=== PATIENT | female | born 1970 | race Caucasian/White ===

== ENCOUNTER 2021-05-31 16:05 | Emergency (ER) | payer BC ==
--- OUTSIDE RECORDS SUMMARY | 2021-05-31 16:33 | XMS REPORT | Continuity of Care Document ---
:1970 Author Organization [facility] t Address [address] [place] [address] Care Team Providers Name Role Phone Unavailable Unavailable Unavailable Payers Payer Name Policy Type Policy Number Effective Date Expiration Date S ource Problems This patient has no known problems. Allergies, Adverse Reactions, Alerts Allergy Allergy Status Severity Reaction(s) Onset Inactive Treating Comm ents Source Name Type Date Date Clinician morphine DA Active MO VOMITING AND 2020- HC A RASH 08-26 [facility] 00:00: d 00 [facility] hydrocod DA Active MO VOMITING, [facility] one RASH 08-26 [facility] 00:00: d [facility] acetamin DA Active MO VOMITING, [facility] ophen RASH 08-26 [facility] 00:00: d 00 [facility] Center morphine DA Active MO 2020-0 [facility] d [address] [facility] hydrocod DA Active MO 2020-0 [facility] one - [facility] 00:00: d [facility] acetamin DA Active MO 2020- [facility] ophen - [facility] 00:00: d 00 [facility] Medications This patient has no known medications. Procedures This patient has no known procedures. Encounters Start End Encounter Admission Attending Care Care Encounter Source Date/Time Date/Time Type Type Clinicians Facility Department ID 2020-08-26 Inpatient [facility]CAK[facility] TIMBO [id number] [facility] 14:30:00 [id number] 2020-01-21 2020-01-21 Inpatient E [facility] [place] 7503 [place] 18:39:00 12:44:00 Results Test Description Test Time Test Comments Results Result Sour e Comments - CT L-SPINE W/O 2020-08-26 [facility]:54:00 [facility] : 1970 Sex: F FAX: Elizabeth Dsouza [phone] [place]: St: PRE Name: EMILOW Stephens [facility] : 1970 Age/S: 50/F [address] Unit: [id number] Loc: [place] [address] Phys: Elizabeth Dsouza LEAD BUSINESS SYSTEMS ANALYST Acct: [id number] Dis Date: Status: PRE ER PHONE #: [phone] Exam Date: 08/26/2020 1536 FAX #: [phone] Reason: R LUMBAR PAIN AFTER SLIPPING ON ICE EXAMS: CPT CODE: [id number] CT L-SPINE W/O CONTRAST [id number] Dictation location: [facility]. CT LUMBAR SPINE WITHOUT CONTRAST; SAGITTAL AND CORONAL REFORMATTED VIEWS. HISTORY: R LUMBAR PAIN AFTER SLIPPING ON ICE COMPARISON :None. TECHNIQUE: Axial CT images of the lumbar spine were obtained with coronal and sagittal reformatted views. Automated exposure control, iterative reconstruction technique, and/or adjustment of mA and/or kV according to patient's size was utilized for radiation dose reduction. IV CONTRAST: None. FINDINGS: The lumbar vertebral alignment is satisfactory without evidence of a fracture or subluxation. No prevertebral soft tissue swelling. Degenerative changes are noted with disc space narrowing, anterior osteophytes and facet arthrosis. Partial lumbarization of S1. At L2-L3, posterior bulging annulus and osteophyte formation with facet arthrosis causes mild spinal canal stenosis without neuroforaminal narrowing. At L3-L4, posterior bulging annulus and bilateral facet arthrosis causes mild spinal canal stenosis without neuroforaminal narrowing. At L4-L5, posterior bulging annulus and bilateral facet arthrosis causes moderate spinal canal stenosis and mild bilateral neuroforaminal narrowing. At L5-S1, posterior bulging annulus gallbladder facet arthrosis and ligamentum flavum thickening causes severe spinal canal stenosis and mild to moderate bilateral neuroforaminal narrowing. IMPRESSION: Lumbar spondylosis with moderate to severe spinal canal stenosis at L4-L5 and L5-S1. No lumbar spine fracture or subluxation. PAGE 1 Signed Report (CONTINUED) FAX: Elizabeth Dsouza [phone] [place]: St: PRE Name: LOW MIDDLETON [facility] : 1970 Age/S: 50/F [address] Unit: [id number] Loc: [place] [address] Phys: Elizabeth Dsouza LEAD BUSINESS SYSTEMS ANALYST Acct: [id number] Dis Date: Status: PRE ER PHONE #: [phone] Exam Date: 08/26/2020 1536 FAX #: [phone] Reason: R LUMBAR PAIN AFTER SLIPPING ON ICE EXAMS: CPT CODE: [id number] CT L-SPINE W/O CONTRAST [id number] <Continued> at 1554 Reported and signed by: Jose Caballero MD CC: Elizabeth Dsouza NP Technologist: NAHOMI ROSA Trnscrd Dt/Tm: 08/26/2020 ([id number]) [email or web address] Orig Print D/T: S: 08/26/2020 (2106 PAGE 2 Signed Report
[2021-05-31] MEDS ORDERED: IBUPROFEN 400 MG TAB ONE (16:39)
[2021-05-31 18:13] LABS: SARS-COV-2 RT PCR POSITIVE (NEGATIVE)
[2021-05-31] MEDS ORDERED: CASIRIVIMAB/IMDEVIMAB 10 ML VIAL ONE (18:26)
[2021-05-31] MEDS ORDERED: NA CHLORIDE 0.9% 250 ML ONE (18:26)
--- NOTE | 2021-05-31 22:22 | EDPHYS ---
Physician Documentation [facility] Name: Hillary Hand Age: 50 yrs Sex: Female : 1970 Arrival Date: 05/31/2021 Time: 16:10 Bed 14 Private MD: ED Physician Manny Almanza HPI: 05/31 16:21 This 50 yrs old Female presents to ER via Ambulatory with complaints of Covid+, Cough. jmm 16:21 The patient or guardian reports cough. Onset: The symptoms/episode began/occurred jmm gradually, last night. Modifying factors: The symptoms are alleviated by nothing. the symptoms are aggravated by nothing. Associated signs and symptoms: Pertinent positives: fever. It is unknown whether or not the patient has had similar symptoms in the past. Is a 50-year-old female with a history of diabetes mellitus, hyperlipidemia the presents emerged part with complaints of cough, sore throat, body aches, fever beginning last night. Patient is immunized for coronavirus.. 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 - Social history:: Smoking status: Patient denies any tobacco usage or history of. ROS: 16:21 Constitutional: Positive for body aches, chills, fatigue, fever. jmm 16:21 Cardiovascular: Positive for Negative for chest pain. 16:21 Respiratory: Positive for cough. 16:21 Respiratory: Positive for 16:21 All other systems are negative. Exam: 16:21 Constitutional: This is a well developed, well nourished patient who is awake, alert, jmm and in no acute distress. Head/Face: atraumatic. Eyes: EOMI, no conjunctival erythema appreciated ENT: Moist Mucus Membranes Neck: Trachea midline, Supple Chest/axilla: Normal chest wall appearance and motion. Cardiovascular: Regular rate and rhythm. No edema appreciated Respiratory: Normal respirations, no respiratory distress appreciated Abdomen/GI: Non distended, soft Back: Normal ROM Skin: General appearance color normal MS/ Extremity: Moves all extremities, no obvious deformities appreciated, no edema noted to the lower extremities Neuro: Awake and alert, normal gait Psych: Behavior is normal, Mood is normal, Patient is cooperative and pleasant Vital Signs: 16:15 BP 126 / 79; Pulse 113; Resp 18; Temp 101.6(O); Pulse Ox 97% ; Weight 92.99 kg; Height vg1 5 ft. 0 in. (152.40 cm); Pain 5/10; 17:20 BP 118 / 64; Pulse 77; Resp 18; Pulse Ox 100% ; jh6 18:52 BP 97 / 67; Pulse 95; Resp 18; Temp 98.8(O); Pulse Ox 97% on R/A; mh5 19:19 BP 109 / 75; Pulse 80; Resp 17; Temp 99.0(O); Pulse Ox 98% on R/A; jh6 19:30 BP 110 / 72; Pulse 86; Resp 18; Temp 98.9(O); Pulse Ox 97% on R/A; Pain 0/10; kc4 19:45 BP 114 / 76; Pulse 82; Resp 18; Temp 98.8(O); Pulse Ox 100% on R/A; Pain 0/10; kc4 20:12 BP 123 / 69; Pulse 86; Resp 18; Temp 98.9; Pulse Ox 100% on R/A; Pain 0/10; kc4 20:20 BP 108 / 70; Pulse 80; Resp 18; Temp 98.8(O); Pulse Ox 100% on R/A; Pain 0/10; kc4 21:36 BP 124 / 81; Pulse 80; Resp 18; Temp 98.7(O); Pulse Ox 98% on R/A; Pain 0/10; kc4 16:15 Body Mass Index 40.04 (92.99 kg, 152.40 cm) vg1 20:20 Infusion complete kc4 MDM: 17:46 Patient medically screened. [facility] 22:20 Data reviewed: vital signs, nurses notes. Counseling: I had a detailed discussion with hiram the patient and/or guardian regarding: the historical points, exam findings, and any diagnostic results supporting the discharge/admit diagnosis, lab results, the need for outpatient follow up, to return to the emergency department if symptoms worsen or persist or if there are any questions or concerns that arise at home. ED course: Patient is alert and nontoxic in appearance NAD. No signs of respiratory distress. Given IV infusion of monoclonal antibodies. Advised follow-up PCP and otherwise given strict return precautions. Patient understood and agrees to plan of care.. 05/31 16:20 Order name: COVID-19/FLU A+B (Document "Date of Onset" if Symptomatic); Complete Time: vg1 18:15 05/31 16:20 Order name: Strep; Complete Time: 18:15 vg1 05/31 17:37 Order name: Throat Culture EDMS Administered Medications: 16:42 Drug: Ibuprofen 400 mg Route: PO; [facility] 19:19 Follow up: Response: No adverse reaction 2 19:10 Drug: Casirivimab-Imdevimab Dose Pack 120 mg/mL-120 mg/mL (EUA) 1 application Route: 6 IV; Rate: calculated rate; Site: right forearm; 22:41 Follow up: IV Status: Completed infusion [facility] Disposition Summary: 05/31/21 22:21 Discharge Ordered Location: Home [facility] Condition: Stable [facility] Diagnosis - Coronavirus infection, unspecified [facility] Followup: jmm - With: Private Physician - When: 2 - 3 days - Reason: Recheck today's complaints, Continuance of care, Re-evaluation by your physician Discharge Instructions: - Discharge Summary Sheet [facility] - COVID-19 [facility] Forms: - Medication Reconciliation Form [facility] - Thank You Letter [facility] - Antibiotic Education [facility] - Prescription Opioid Use [facility] - Work release form mw2 Addendum: 06/03/2021 07:09 Co-signature as Attending Physician, Manny Almanza MD I agree with the assessment and r n plan of care. Attestation: The patient's history, exam findings, diagnostics, and a summary of any interventions or procedures was reviewed in detail with Elton ALLEN. Signatures: Dispatcher [employer] EDElton Romero PA PA jmm Nieto, Roman, MD MD rn Garcia, Victoria RN RN 1 Grazyna Escalante RN RN 6 America Pyle 4 Susan Gutierrez RN 2
--- NOTE | 2021-05-31 22:22 | ER ---
Nurse's Notes [facility] Name: Hillary Hand Age: 50 yrs Sex: Female : 1970 Arrival Date: 05/31/2021 Time: 16:10 Bed 14 Private MD: Diagnosis: Coronavirus infection, unspecified Presentation: 05/31 16:15 Chief complaint: Patient states: fever, cough, headache, sore throat and body aches vg1 began last night. States an employee test positive for covid. Also states RAYMUNDO ear pain. Coronavirus screen: Vaccine status: Patient reports receiving the 1st dose of the Covid vaccine. Client denies travel out of the [place] in the last 14 days. Ebola Screen: Patient negative for fever greater than or equal to 101.5 degrees Fahrenheit, and additional compatible Ebola Virus Disease symptoms. Initial Sepsis Screen: Does the patient meet any 2 criteria? Temp <36.0*C (96.8*F)) or > 38.3*C (100.9*F). Does the patient have a suspected source of infection? No. Patient's initial sepsis screen is negative. Risk Assessment: Do you want to hurt yourself or someone else? Patient reports no desire to harm self or others. Onset of symptoms was May 30, 2021. 16:15 Method Of Arrival: Ambulatory vg1 16:15 Acuity: MAGNO 3 vg1 Triage Assessment: 16:17 General: Appears in no apparent distress. uncomfortable, Behavior is calm, cooperative. vg1 Pain: Complains of pain in head Pain currently is 5 out of 10 on a pain scale. 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 - Social history:: Smoking status: Patient denies any tobacco usage or history of. Screenin:44 Abuse screen: Denies threats or abuse. Nutritional screening: No deficits noted. jh6 Tuberculosis screening: No symptoms or risk factors identified. Fall Risk None identified. Assessment: 16:43 General: Appears in no apparent distress. comfortable, Behavior is calm, cooperative. jh6 Pain: Pain currently is 3 out of 10 on a pain scale. Quality of pain is described as aching. 17:20 Reassessment: No changes from previously documented assessment. jh6 18:40 Reassessment: Patient and/or family updated on plan of care and expected duration. Pain jh6 level reassessed. Provider spoke with pt regarding +COVID results, pt agreeable to receive antibodies at this time. Pt was able to review information packet and is informed of time frame of visit and post infusion monitoring. . 19:43 Reassessment: Patient and/or family updated on plan of care and expected duration. Pain kc4 level reassessed. Patient is alert, oriented x 3, equal unlabored respirations, skin warm/dry/pink. General: Appears in no apparent distress. comfortable, Behavior is calm, cooperative, appropriate for age. Pain: Pain currently is 3 out of 10 on a pain scale. at worst was 10 out of 10 on a pain scale. Quality of pain is described as aching. Neuro: No deficits noted. Cardiovascular: No deficits noted. GI: No deficits noted. No signs and/or symptoms were reported involving the gastrointestinal system. : No deficits noted. No signs and/or symptoms were reported regarding the genitourinary system. EENT: No deficits noted. No signs and/or symptoms were reported regarding the EENT system. Derm: No deficits noted. No signs and/or symptoms reported regarding the dermatologic system. Musculoskeletal: No deficits noted. No signs and/or symptoms reported regarding the musculoskeletal system. Vital Signs: 16:15 BP 126 / 79; Pulse 113; Resp 18; Temp 101.6(O); Pulse Ox 97% ; Weight 92.99 kg; Height vg1 5 ft. 0 in. (152.40 cm); Pain 5/10; 17:20 BP 118 / 64; Pulse 77; Resp 18; Pulse Ox 100% ; jh6 18:52 BP 97 / 67; Pulse 95; Resp 18; Temp 98.8(O); Pulse Ox 97% on R/A; 5 19:19 BP 109 / 75; Pulse 80; Resp 17; Temp 99.0(O); Pulse Ox 98% on R/A; jh6 19:30 BP 110 / 72; Pulse 86; Resp 18; Temp 98.9(O); Pulse Ox 97% on R/A; Pain 0/10; kc4 19:45 BP 114 / 76; Pulse 82; Resp 18; Temp 98.8(O); Pulse Ox 100% on R/A; Pain 0/10; kc4 20:12 BP 123 / 69; Pulse 86; Resp 18; Temp 98.9; Pulse Ox 100% on R/A; Pain 0/10; kc4 20:20 BP 108 / 70; Pulse 80; Resp 18; Temp 98.8(O); Pulse Ox 100% on R/A; Pain 0/10; kc4 21:36 BP 124 / 81; Pulse 80; Resp 18; Temp 98.7(O); Pulse Ox 98% on R/A; Pain 0/10; kc4 16:15 Body Mass Index 40.04 (92.99 kg, 152.40 cm) vg1 20:20 Infusion complete kc4 ED Course: 16:10 Patient arrived in ED. mr 16:13 Elton Bonds PA is PHCP. jmm 16:13 Manny Almanza MD is Attending Physician. [facility] 16:17 Triage completed. vg1 16:17 Arm band placed on. vg1 16:21 COVID swab sent to lab. Flu and/or RSV swab sent to lab. Strep swab sent to lab. vg1 16:34 Grazyna Escalante, RN is Primary Nurse. jh6 16:34 Strep Sent. jh6 16:34 COVID-19/FLU A+B (Document "Date of Onset" if Symptomatic) Sent. jh6 16:44 Call light in reach. Side rails up X 1. Door closed. Noise minimized. Lights dimmed. jh6 16:44 No provider procedures requiring assistance completed. jh6 16:45 Awaiting lab results. jh6 18:40 Inserted saline lock: 22 gauge in right forearm, using aseptic technique. jh6 19:21 No apparent distress. Resting quietly. kc4 22:40 IV discontinued, intact, bleeding controlled, No redness/swelling at site. Pressure kc4 dressing applied. 22:41 Throat Culture Sent. kc4 Administered Medications: 16:42 Drug: Ibuprofen 400 mg Route: PO; jh6 19:19 Follow up: Response: No adverse reaction 2 19:10 Drug: Casirivimab-Imdevimab Dose Pack 120 mg/mL-120 mg/mL (EUA) 1 application Route: jh6 IV; Rate: calculated rate; Site: right forearm; 22:41 Follow up: IV Status: Completed infusion 4 Outcome: 22:21 Discharge ordered by . hiram 22:40 Discharged to home ambulatory. [facility] 22:40 Condition: improved 22:40 Discharge instructions given to patient, Instructed on discharge instructions, follow up and referral plans. medication usage, Quarentining Demonstrated understanding of instructions, follow-up care, medications. 22:41 Patient left the ED. [facility] Signatures: Elton Bonds PA PA jmm Zeynep Burt, Miguelina 5 Oneida Worrell, RN RN vg1 America Pyle kc4 Susan Gutierrez, RN RN sl2 Grazyna Escalante RN RN jh6 Corrections: (The following items were deleted from the chart) 16:21 16:15 Chief complaint: Patient states: fever, cough, headache, sore throat and body vg1 aches began last night. States an employee test positive for covid. vg1
[2021-05-31 22:57] VITALS: BP 124/81; TEMP 98.7; O2SAT 98
== END 2021-05-31 22:41 | disposition home or self-care (01) ==
LOC: ER 16:05
DX: U07.1 COVID-19 (principal); E11.9 Type 2 diabetes mellitus without complications; Z79.4 Long term (current) use of insulin; Z88.5 Allergy status to narcotic agent
CPT/HCPCS: 96365; 87070; 87081; 0240U; 99284; 96366; J7050; M0243

== ENCOUNTER 2022-04-30 22:55 | Emergency (ER) | payer BC, SELFPAY ==
--- OUTSIDE RECORDS SUMMARY | 2022-04-30 23:00 | XMS REPORT | Continuity of Care Document ---
:1970 Author Organization [facility] t Address [address] [place] [address] Care Team Providers Name Role Phone CHARO TEIXEIRA Attending Clinician Unavailable CHARO TEIXEIRA Admitting Clinician Unavailable Payers Payer Name Policy Type Policy Number Effective Date Expiration Date S ource Problems Condition Condition Condition Status Onset Resolution Last Treating Co mments Source Name Details Category Date Date Treatment Clinician Date DIABETIC DIABETIC Problem Active 2013-12-22 Memoria Active 04:00:32 l Problem [place] 12/22/2013 [facility] FATTY FATTY Problem Active 2013-12-22 Joshua krupa LIVER LIVER 04:00:32 l Active [place] Problem 12/22/2013 [facility] SKIN SKIN Problem Active 2013-12-22 Memor ia CANCER CANCER 04:00:32 l Active [place] Problem 12/22/2013 [facility] Allergies, Adverse Reactions, Alerts Allergy Allergy Status Severity Reaction(s) Onset Inactive Treating Comm ents Source Name Type Date Date Clinician morphine DA Active [facility] A RASH 2-16 [facility] 00:[facility]: d 00 [facility] hydrocod DA Active [facility], [facility] one RASH 08-26 [facility] 00:00: d 00 [facility] acetamin DA Active [facility] VOMITING, [facility] ophen RASH 08-26 [facility] 00:00: d 00 [facility] morphine DA Active MO [facility] -16 [facility] 00:00: d 00 [facility] hydrocod DA Active [facility] one 08-26 [facility] 00:00: d 00 [facility] acetamin DA Active MO [facility] ophen 08-26 [facility] 00:00: d 00 [facility] Medications Ordered Filled Start Stop Current Ordering Indication Dosage Frequency Signature Comments Components Source Medication Medication Date Date Medication? Clinician (SIG) Name Name Estivenselinajohn No Jesus P 1 gm, IV M emoria 12-20 Lonnie Piggyback, l 14:00: Daily, [place] 00 infuse over 30 minutes, first dose 12/20/13 9:00:00 CDT [place] 10 Yes Jesus P 1 tabs, Me moria mg-325 mg 12-20 Lonnie Oral, l oral tablet 13:20: q4hr, PRN H ermann 00 for pain, # 30 tabs, 2 Refill(s) Kombiglyze No Jesus P 1 tabs, Memoria XR 5 mg-500 12-19 Lonnie Tab-ER, l mg oral 23:00: Oral, qPM, Herm clari tablet, 00 first dose extended 12/19/13 release 18:00:00 CDT, Patient's Own Meds Patient's No Jesus P 1 EA, N/A, Memoria Own Home 12-19 Lonnie As l Med BIN 22:02: Indicated Lorin nn 00 PRN for other (see comment), first dose 12/19/13 17:02:00 CDT, Patient's Own Meds ceFAZolin No Jesus P 1 gm, Mem oria 12-19 Lonnie Soln-IV, l 22:00: IV [place] 00 Piggyback, Once, infuse over 30 minutes, first dose 12/19/13 17:00:00 CDT, stop date 12/19/13 17:00:00 CDT Benadryl No Jesus P 25 mg = 1 Memoria 12-19 [place] caps, Cap, l 20:39: Oral, q6hr [place] 00 PRN for itching, first dose 12/19/13 15:39:00 CDT morphine No Jesus P 50 mL, MANAGER SIX SIGMA Memoria MANAGER SIX SIGMA 1 mg/mL 12-19 [place] Dose (mg): l 50 mg 19:12: 2, Lockout Yannick n 00 Interval (min): 15, Limit Amount (mg): 8, Limit Period (hr): 1, IV, MANAGER SIX SIGMA, start date 12/19/13 14:12:00 CDT ondansetron No Jesus P 8 mg = 4 Memoria - [place] mL, l 19:12: Injection, [place] 00 IV Push, q6hr PRN for nausea/vom iting, first dose 12/19/13 14:12:00 CDT D5W with No Jesus P 1,000 mL, Memoria 0.45%NS 12-19 [place] IV, 85 l 1,000 mL 19:12: mL/hr, [place] start date 12/19/13 14:12:00 CDT promethazin No Joshua M 12.5 mg, Memoria e IVPB 12-19 Lastoczy IV l 17:45: Piggyback, [place] 00 Once PRN for nausea/vom iting, infuse over 15 minutes, first dose 12/19/13 12:45:00 CDT Demerol HCl No Joshua M 12.5 mg = Memoria 6-11 Last[place] 0.5 mL, l 17:45: Injection, [place] 00 IV Push, q5min PRN for Pain Mild (1-3), order duration: 4 doses, first dose 12/19/13 12:45:00 CDT, stop date Limited # of times morphine No Joshua M 2 mg = 0.2 Memoria 6-11 Last[place] mL, l 17:45: Injection, [place] 00 IV Push, q5min PRN for pain severe (7-10), order duration: 5 doses, first dose 12/19/13 12:45:00 CDT, stop date Limited # of times Misc No [place] 50 mL, Memor ia Medication 6-11 Soln-IV, l 17:14: IV, Once, first dose 12/19/13 12:14:00 CDT, stop date 12/19/13 12:14:00 CDT Misc No [place] 1,000 mL, Nd moria Medication 6-11 Soln-IV, l 16:55: IV, Once, first dose 12/19/13 11:55:00 CDT, stop date 12/19/13 11:55:00 CDT morphine No [place] 5 mg = 0.5 Memoria 6-11 mL, l 15:40: Injection, [place] 00 IV, Once, first dose 12/19/13 10:40:00 CDT, stop date 12/19/13 10:40:00 CDT morphine No [place] 5 mg = 0.5 Memoria 6-11 mL, l 15:29: Injection, [place] 00 IV, Once, first dose 12/19/13 10:29:00 CDT, stop date 12/19/13 10:29:00 CDT ondansetron No [place] 4 mg = 2 Memoria 6-11 mL, l 15:23: Injection, [place] 00 IV, Once, first dose 12/19/13 10:23:00 CDT, stop date 12/19/13 10:23:00 CDT dexamethaso No [place] 8 mg = 2 Memoria ne 6-11 mL, l 15:20: Injection, [place] 00 IV, Once, first dose 12/19/13 10:20:00 CDT, stop date 12/19/13 10:20:00 CDT lidocaine Yes Joshua M 5 mg = 0.5 Memoria 1% 6-11 Last[place]zy mL, l injectable 15:00: Injection, H ermann solution 00 Subcutaneo us, Once, first dose 12/19/13 10:00:00 CDT, stop date 12/19/13 10:00:00 CDT lidocaine No [place] 1 kit, Memoria topical 6-11 Kit, IV, l 14:57: Once, [place] 00 first dose 12/19/13 9:57:00 CDT, stop date 12/19/13 9:57:00 CDT rocuronium No [place] 20 mg = 2 Memoria 6-11 mL, l 14:55: Injection, IV, Once, first dose 12/19/13 9:55:00 CDT, stop date 12/19/13 9:55:00 CDT fentaNYL No [place] 100 mcg = Memoria 6-11 2 mL, l 14:55: Injection, IV, Once, first dose 12/19/13 9:55:00 CDT, stop date 12/19/13 9:55:00 CDT lidocaine Yes [place] 40 mL, Memoria 6-11 Injection, l 14:55: IV, Once, first dose 12/19/13 9:55:00 CDT, stop date 12/19/13 9:55:00 CDT propofol No [place] 180 mg = Memoria 6-11 18 mL, l 14:55: Emulsion, IV, Once, first dose 12/19/13 9:55:00 CDT, stop date 12/19/13 9:55:00 CDT cefTRIAXone No Franklin Diehl 1 gm, Memoria 6-11 Powder-Inj l 14:51: , IV, Once, first dose 12/19/13 9:51:00 CDT, stop date 12/19/13 9:51:00 CDT midazolam No [place] 2 mg = 2 Memoria 6-11 mL, l 14:51: Injection, IV, Once, first dose 12/19/13 9:51:00 CDT, stop date 12/19/13 9:51:00 CDT LR 1,000 mL No Joshua M 1,000 mL, Memoria 6-11 Lastoczy IV, 100 l 14:05: mL/hr, start date 12/19/13 9:05:00 CDT, For Adults Rocephin No Jesus P 1 gm, IV M emoria 6-11 [place] Piggyback, l 14:05: Pre Op, infuse over 30 minutes, first dose 12/19/13 9:05:00 CDT Kombiglyzkenyon Yes 1 tabs, Joshua krupa XR 5 mg-500 6-02 Oral, qPM, l mg oral 21:12: # 30 tabs, Herm clari tablet, 00 0 extended Refill(s) release Vital Signs Vital Name Observation Time Observation Value Comments Source Diastolic (mm Hg) 2013-12-20 13:00:00 Mem orial [place] Heart Rate 2013-12-20 13:00:00 [facility] [place] Systolic (mm Hg) 2013-12-20 13:00:00 Joshua rial [place] Temperature Oral (F) 2013-12-20 13:00:00 36.5 Leanna [facility] [place] Respitory Rate 2013-12-20 13:00:00 Memori al [place] Diastolic (mm Hg) 2013-12-20 09:00:00 Mem orial [place] Systolic (mm Hg) 2013-12-20 09:00:00 Joshua rial [place] Respitory Rate 2013-12-20 09:00:00 Memori al [place] Heart Rate 2013-12-20 09:00:00 [facility] [place] Temperature Oral (F) 2013-12-20 09:00:00 36.9 Leanna [facility] [place] Respitory Rate 2013-12-20 05:00:00 Memori al [place] Temperature Oral (F) 2013-12-20 05:00:00 37.2 Leanna [facility] [place] Heart Rate 2013-12-20 05:00:00 [facility] [place] Systolic (mm Hg) 2013-12-20 05:00:00 Joshua rial [place] Diastolic (mm Hg) 2013-12-20 05:00:00 Mem orial [place] Temperature Oral (F) 2013-12-19 17:07:00 36.2 Leanna [facility] [place] Temperature Oral (F) 2013-12-19 13:58:00 36.5 Leanna [facility] [place] Height 2013-12-10 21:10:00 158 cm [facility] [place] Weight 2013-12-10 21:10:00 [facility] [place] Procedures Procedure Date / Time Performed Performing Clinician Maria Alejandra prescott CERVICAL DISCECTOMY [facility] CHOLECYSTECTOMY [facility] [place] SKIN CANCER REMOVAL [facility] TONSILLECTOMY [facility] TUBAL LIGATION [facility] Encounters Start End Encounter Admission Attending Care Care Encounter Source Date/Time Date/Time Type Type Clinicians Facility Department ID 2020-08-26 Inpatient HCAKW HCAKW [id number] [facility] 14:45:52 52 [facility] 2020-01-21 2020-01-24 [place] [facility] 18:39:00 16:57:00 CHARO Bal 2013-12-19 2013-12-20 OBS nullFlavo KWSH [id number] Memoria 08:10:00 10:45:00 r isabella Langford 2013-12-19 2013-12-20 Outpatient [id number] Memoria 08:10:00 10:45:00 [id number] 80.2000 Yannick n [facility] Results Test Description Test Time Test Comments Results Result Sour e Comments - CT L-SPINE W/O 2020-08-26 CONTRAST 15:54:00 [facility] [place] [facility] 1970 Sex: F FAX: Elizabeth Dsouza [phone] [place]: St: PRE Name: LOW [place] [facility] : 1970 Age/S: 50/F [address] Unit: [id number] Loc: [place] [address] Phys: Elizabeth Dsouza SHEAR HELPER Acct: [id number] Dis Date: Status: PRE ER PHONE #: [phone] Exam Date: 08/26/2020 1536 FAX #: [phone] Reason: R LUMBAR PAIN AFTER SLIPPING ON ICE EXAMS: CPT CODE: [id number] CT L-SPINE W/O CONTRAST 32053 Dictation location: [facility]. CT LUMBAR SPINE WITHOUT CONTRAST; SAGITTAL AND [...] 1 Signed Report (CONTINUED) FAX: Elizabeth Dsouza [phone] [place]: St: PRE Name: LOW [place] [facility] : 1970 Age/S: 50/F [address] Unit: [id number] Loc: [place] [address] Phys: Elizabeth Dsouza NP Acct: [id number] Dis Date: Status: PRE ER PHONE #: [phone] Exam Date: 08/26/2020 1536 FAX #: [phone] Reason: R LUMBAR PAIN AFTER SLIPPING ON ICE EXAMS: CPT CODE: [id number] CT L-SPINE W/O CONTRAST 42623 <Continued> at 1554 Reported and signed by: Jose Caballero MD CC: Elizabeth Dsouza NP Technologist: NAHOMI ROSA Trnscrd Dt/Tm: 08/26/2020 (1558) [email or web address] Orig Print D/T: S: 08/26/2020 (1557 PAGE 2 Signed Report LABORATORY 2013-12-20 11:47:00 Test Item Value Reference Range Interpretation Comme nts Blood Glucose, Capillary (test code = Blood Glucose, Capillary) 143 74-106 H [id number] 03:00:00 Test Item Value Reference Range Interpretation Comments Blood Glucose, Capillary (test code = 103 74-106 Blood Glucose, Capillary) [id number] 22:46:00 Test Item Value Reference Range Interpretation Comments Blood Glucose, Capillary (test code = 161 74-106 H Blood Glucose, Capillary) [id number] 17:07:00 Test Item Value Reference Range Interpretation Comments FIO2 (test code = FIO2) (98) [facility]
--- NOTE | 2022-05-01 00:49 | EDPHYS ---
Physician Documentation [facility] Name: Hillary Hand Age: 51 yrs Sex: Female : 1970 Arrival Date: 04/30/2022 Time: 23:21 Bed 4 Private MD: ED Physician Chris Banuelos HPI: 05/01 00:48 This 51 yrs old Female presents to ER via Ambulatory with complaints of Flu Symptoms. ms3 00:48 51-year-old female with past medical history of diabetes, hypercholesterolemia presents ms3 for myalgias, fevers, chills that been ongoing for 1 day. Patient states her is COVID-positive. Patient states her discomfort a 5/10 described as aching. Patient denies alleviating or inciting factors. Patient states she took Aleve at 7 PM. Patient endorses headache. Patient denies abdominal pain, dysuria. HARD CANDY SPINNER: 04/30 23:31 LMP N/A - Post-menopause kb3 Historical: - Allergies: 23:31 Morphine; kb3 23:31 Vicodin; kb3 - Home Meds: 23:31 atorvastatin 10 mg oral tab 1 tab once daily [Active]; metformin 1,000 mg Oral tab 1 kb3 tab 2 times per day [Active]; - PMHx: 23:31 diabetes mellitus; Hypercholesterolemia; kb3 - PSHx: 23:31 Cholecystectomy; Partial Thyroid; tubal ligation; kb3 - Immunization history:: Adult Immunizations up to date, Client reports receiving the 2nd dose of the Covid vaccine, Last tetanus immunization: up to date. - Social history:: Smoking status: Patient denies any tobacco usage or history of. ROS: 05/01 00:48 Neck: Negative for injury, pain, and swelling, Cardiovascular: Negative for chest pain, ms3 and palpitations. MS/Extremity: Negative for injury and deformity, Skin: Negative for injury, rash, and discoloration. Constitutional: Positive for body aches, chills, fever. Respiratory: Positive for cough. All other systems are negative. Exam: 00:48 Constitutional: This is a well developed, well nourished patient who is awake, alert, ms3 and in no acute distress. Head/Face: Normocephalic, atraumatic. Neck: Trachea midline, no cervical lymphadenopathy. Supple, full range of motion without nuchal rigidity, or vertebral point tenderness. No Meningismus. Chest/axilla: Normal chest wall appearance and motion. Nontender with no deformity. Cardiovascular: Regular rate and rhythm with a normal S1 and S2. No gallops, murmurs, or rubs. Normal PMI, no JVD. No pulse deficits. Respiratory: Lungs have equal breath sounds bilaterally, clear to auscultation and percussion. No rales, rhonchi or wheezes noted. No increased work of breathing, no retractions or nasal flaring. Abdomen/GI: Soft, non-tender, with normal bowel sounds. No distension or tympany. No guarding or rebound. No evidence of tenderness throughout. Skin: Warm, dry with normal turgor. Normal color with no rashes, no lesions, and no evidence of cellulitis. Vital Signs: 04/30 23:30 BP 122 / 80; Pulse 95; Resp 20; Temp 97.4; Pulse Ox 95% ; Weight 89.81 kg; Height 5 ft. kb3 1 in. (154.94 cm); Pain 5/10; 23:55 BP 117 / 75; Pulse 87; Resp 17 S; Pulse Ox 95% on R/A; ha1 05/01 01:04 BP 102 / 57; Pulse 72; Resp 19 S; Pulse Ox 100% on R/A; ha1 04/30 23:30 Body Mass Index 37.41 (89.81 kg, 154.94 cm) kb3 MDM: 04/30 23:38 Patient medically screened. ms3 05/01 00:48 Data reviewed: vital signs, nurses notes, lab test result(s), and as a result, I will ms3 discharge patient. Counseling: I had a detailed discussion with the patient and/or guardian regarding: the historical points, exam findings, and any diagnostic results supporting the discharge/admit diagnosis, lab results, the need for outpatient follow up, to return to the emergency department if symptoms worsen or persist or if there are any questions or concerns that arise at home. ED course: Discussed all labs and symptomatic care with patient. Patient to follow-up with her primary care physician in 2 to 3 days. Patient understands and agrees with plan. All questions were answered. Return precautions discussed include worsening symptoms, or any other concerns. On reevaluation patient is alert and oriented x4, no apparent distress, nontoxic appearing, ambulatory in Emergency Department, speaking full sentences. 04/30 23:36 Order name: SARS-COV-2 RT PCR (Document "Date of Onset" if Symptomatic); Complete Time: ms3 00:48 04/30 23:36 Order name: Flu; Complete Time: 00:48 ms3 Administered Medications: No medications were administered Disposition Summary: 05/01/22 00:48 Discharge Ordered Location: Home ms3 Condition: Stable ms3 Diagnosis - SARS-associated coronavirus as the cause of diseases classified elsewhere ms3 Followup: ms3 - With: Roman Nath DO - When: 2 - 3 days - Reason: Recheck today's complaints Discharge Instructions: - Discharge Summary Sheet ms3 - COVID-19 ms3 - 10 Things You Can Do to Manage Your COVID-19 Symptoms at Home - [facility] ms3 Forms: - Medication Reconciliation Form ms3 - Thank You Letter ms3 - Antibiotic Education ms3 - Prescription Opioid Use ms3 - Work release form ha1 Signatures: Dispatcher [employer] EDMS Chris Banuelos DO DO ms3 Malinda Avalos, RN RN kb3 Corrections: (The following items were deleted from the chart) 04/30 23:32 23:31 Home Meds: Insulin: Lantus Sub-Q; kb3 kb3
--- NOTE | 2022-05-01 00:49 | ER ---
Nurse's Notes [facility] Name: Hillary Hand Age: 51 yrs Sex: Female : 1970 Arrival Date: 04/30/2022 Time: 23:21 Bed 4 Private MD: Diagnosis: SARS-associated coronavirus as the cause of diseases classified elsewhere Presentation: 04/30 23:30 Chief complaint: Patient states: Pt reports body aches, chills, fever since this kb3 morning. Reports spouse tested positive for covid today. Coronavirus screen: Vaccine status: Patient reports receiving the 2nd dose of the covid vaccine. Client denies travel out of the [place] in the last 14 days. Ebola Screen: Patient negative for fever greater than or equal to 101.5 degrees Fahrenheit, and additional compatible Ebola Virus Disease symptoms Patient denies exposure to infectious person. Patient denies travel to an Ebola-affected area in the 21 days before illness onset. No symptoms or risks identified at this time. Initial Sepsis Screen: Does the patient meet any 2 criteria? No. Patient's initial sepsis screen is negative. Does the patient have a suspected source of infection? No. Patient's initial sepsis screen is negative. Risk Assessment: Do you want to hurt yourself or someone else? Patient reports no desire to harm self or others. Onset of symptoms was April 30, 2022 at 08:00. 23:30 Method Of Arrival: Ambulatory kb3 23:30 Acuity: MAGNO 4 kb3 Triage Assessment: 23:31 General: Appears in no apparent distress. Behavior is calm, cooperative. Pain: kb3 Complains of pain in head Pain does not radiate. Pain currently is 5 out of 10 on a pain scale. Quality of pain is described as aching, Pain began. MANAGER SOURCING: 23:31 LMP N/A - Post-menopause kb3 Historical: - Allergies: 23:31 Morphine; kb3 23:31 Vicodin; kb3 - Home Meds: 23:31 atorvastatin 10 mg oral tab 1 tab once daily [Active]; metformin 1,000 mg Oral tab 1 kb3 tab 2 times per day [Active]; - PMHx: 23:31 diabetes mellitus; Hypercholesterolemia; kb3 - PSHx: 23:31 Cholecystectomy; Partial Thyroid; tubal ligation; kb3 - Immunization history:: Adult Immunizations up to date, Client reports receiving the 2nd dose of the Covid vaccine, Last tetanus immunization: up to date. - Social history:: Smoking status: Patient denies any tobacco usage or history of. Screenin:55 Abuse screen: Denies threats or abuse. Denies injuries from another. Nutritional ha1 screening: No deficits noted. Tuberculosis screening: No symptoms or risk factors identified. Fall Risk None identified. Assessment: 23:52 General: Appears ill, Behavior is calm, cooperative. Pain: Complains of pain in body ha1 ache. Neuro: Level of Consciousness is awake, alert, obeys commands, Oriented to person, place, time, situation. Cardiovascular: Patient's skin is warm and dry. Respiratory: Airway is patent Trachea midline Respiratory effort is even, unlabored, Respiratory pattern is regular, symmetrical. GI: No signs and/or symptoms were reported involving the gastrointestinal system. Abdomen is non-distended, obese, Bowel sounds present X 4 quads. : No signs and/or symptoms were reported regarding the genitourinary system. Derm: Skin is pink, warm \\T\\ dry. Musculoskeletal: Circulation, motion, and sensation intact. Range of motion: intact in all extremities. 05/01 01:01 Reassessment: Patient and/or family updated on plan of care and expected duration. Pain ha1 level reassessed. Patient is alert, oriented x 3, equal unlabored respirations, skin warm/dry/pink. Vital Signs: 04/30 23:30 BP 122 / 80; Pulse 95; Resp 20; Temp 97.4; Pulse Ox 95% ; Weight 89.81 kg; Height 5 ft. kb3 1 in. (154.94 cm); Pain 5/10; 23:55 BP 117 / 75; Pulse 87; Resp 17 S; Pulse Ox 95% on R/A; ha1 05/01 01:04 BP 102 / 57; Pulse 72; Resp 19 S; Pulse Ox 100% on R/A; ha1 04/30 23:30 Body Mass Index 37.41 (89.81 kg, 154.94 cm) kb3 ED Course: 04/30 23:21 Patient arrived in ED. ja2 23:22 Chris Banuelos DO is Attending Physician. ms3 23:31 Triage completed. kb3 23:31 Arm band placed on right wrist. kb3 23:52 Ro Hoff, RN is Primary Nurse. ha1 23:52 Flu Sent. ha1 23:52 SARS-COV-2 RT PCR (Document "Date of Onset" if Symptomatic) Sent. ha1 05/01 00:48 Roman Nath DO is Referral Physician. ms3 01:01 No provider procedures requiring assistance completed. Patient did not have IV access ha1 during this emergency room visit. 01:02 Patient has correct armband on for positive identification. Bed in low position. Call ha1 light in reach. Side rails up X 1. Administered Medications: No medications were administered Medication: 01:02 VIS not applicable for this client. ha1 Outcome: 00:48 Discharge ordered by MD. ms3 01:01 Discharged to home via ambulance. ha1 01:01 Condition: stable 01:01 Discharge instructions given to patient, Instructed on discharge instructions, follow up and referral plans. Demonstrated understanding of instructions, follow-up care. 01:02 Patient left the ED. ha1 Signatures: Chris Banuelos DO DO ms3 Kimberley Pizarro ja2 Ro Hoff, RN RN ha1 Malinda Avalos, ENEDINA RN kb3 Corrections: (The following items were deleted from the chart) 04/30 23:32 23:31 Home Meds: Insulin: Lantus Sub-Q; kb3 kb3
[2022-05-01 01:11] VITALS: TEMP 97.4; O2SAT 95
[2022-05-01 01:12] VITALS: BP 117/75
== END 2022-05-01 01:02 | disposition home or self-care (01) ==
LOC: ER 22:55
DX: U07.1 COVID-19 (principal); Z88.5 Allergy status to narcotic agent
CPT/HCPCS: 87804; 99283; U0003